=== PATIENT | male | born 1970 | race Caucasian/White ===

== ENCOUNTER 2025-03-14 09:24 | Outpatient (OUT) | payer BC, SELFPAY ==
--- OUTSIDE RECORDS SUMMARY | 2025-03-14 09:31 | XMS_ITS | Clinical Summary ---
Author Organization [facility] [employer] [facility] Address [address] [place] [address] [place] [address] Care Team Providers Care Scissors Sharpener Name Role Phone Laz Man MD Primary Care Provider [phone] Allergies Active Allergy Reactions Criticality Noted Date Comments *Seafood - Food Allergy 04/05/2018 Medications allopurinol 100 MG Tab tablet Take 5 tablets by mouth daily. Active aspirin 81 MG Tab Take 1 tablet by mouth daily. Active Levocetirizine Dihydrochloride 5 MG Tab tablet Take by mouth. Active Multiple Vitamin (MULTIVITAMIN) Cap Take 1 capsule by mouth daily. Active Loratadine-Pseudoep hedrine (CLARITIN-D 12 HOUR PO) Take by mouth. Active valsartan 160 MG tabletIndications:E ssential (primary) hypertension TAKE 1 TABLET BY MOUTH EVERY DAY 90 tablet 3 2 Active Naproxen Sodium 220 MG capsule Take 1 capsule by mouth as needed for Mild Pain. Active CUSTOM MEDICATION 1 tablet daily. Shilajt ashwagandhea , rhodiola rosea, panax ginseng Active Flecainide 100 MG tablet Take 1 tablet by mouth 2 times daily. 180 tablet 3 4 Active Icosapent Ethyl 1 g capsule TAKE 4 CAPSULES BY MOUTH EVERY DAY 360 capsule 3 4 Active Spironolactone 25 MG tablet TAKE 1/2 TABLET BY MOUTH DAILY 45 tablet 3 4 Active carveDILOL 25 MG tablet TAKE 1.5 TABLETS BY MOUTH EVERY DAY 135 tablet 3 5 Active atorvastatin 80 MG tablet TAKE 1 TABLET BY MOUTH EVERY DAY 90 tablet 3 5 Active Ezetimibe 10 MG tablet TAKE 1 TABLET BY MOUTH EVERY DAY 90 tablet 3 5 Active Vitamin D3 50 MCG (1999) capsule TAKE 1 CAPSULE BY MOUTH EVERY DAY 90 capsule 3 5 Active Active Problems Problem Noted Date Diagnosed Date PVC (premature ventricular contraction) 05/09/20 24 Mixed hyperlipidemia 05/03/2019 body mass index of 40.0-49.9 04/05/2018 Abnormal result of other cardiovascular function study 12/13/2017 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 12/13/2017 Essential (primary) hypertension 12/13/2017 shelter (current) use of aspirin 12/13/2017 Nicotine dependence, chewing tobacco, uncomplica nita 12/13/2017 Ventricular tachycardia 12/13/2017 Chest pain 07/21/2016 Resolved Problems Problem Noted Date Diagnosed Date Resolved Date Hypertensive disorder 07/21/20162021 Immunizations Immunization Administration Dates Next Due Tdap Vaccine 02/24/2018,01/11/2014 Family History Medical History Relation Name Comments Lipid Disorder Daughter 1 jason Diabetes Father Myocardial Infarction Father Heart Disease - Other Maternal Aunt Heart Disease - Other Maternal Grandmother Breast Cancer Mother Diabetes Mother Heart Disease - Other Mother Hypertension Mother Heart Disease - Other Paternal Uncle Diabetes Sister Other - Specify Sister blood clot t o heart and lungs Relation Name Status Comments Daughter 1 jason Alive Daughter 2 isabela Alive Father Maternal Aunt Maternal Grandmother Mother Paternal Uncle Sister Social History Tobacco Use Types Packs/Day Years Used Date Smoking Tobacco: Never Smokeless Tobacco: Current Chew Tobacco Cessation:Ready to Q uit: Not Asked; Counseling Given: Not Answered Alcohol Use Standard Drinks/Week Comments Yes 0 (1 standard drink = 0.6 oz pur e alcohol) occ AUDIT-C Answer Date Recorded Q1: How often do you have a drink containing alc ohol? 2-3 times a week 01/24/2020 Q2: How many drinks containi ng alcohol do you have on a typical day when you are drinking? 1 or 2 01/24/2020 Q3: How often do you have si x or more drinks on one occasion? Never 01/24/2020 Sex and Gender Information Value Date Recorded Sex Assigned at Not on file Legal Sex Male 8:31 AM EDT Gender Identity Male 03/29/2018 3:37 PM EDT Sexual Orientation Not on file Last Filed Vital Signs Vital Sign Reading Time Taken Comments Blood Pressure 130/84 05/09/2024 3:13 PM EST Pulse 59 05/09/2024 1:53 PM EST Temperature 36.2 C (97.1 F) 07/06/2022 10:08 AM EST Respiratory Rate 14 07/06/2022 10:08 AM EST Oxygen Saturation 98% 07/06/2022 10:08 AM EST Inhaled Oxygen Concentration - - Weight 142.6 kg (314 lb 6 oz) 05/09/2024 3:13 PM EST Height 177.8 cm (5' 10 ) 05/09/2024 3:13 PM EST Body Mass Index 45.11 05/09/2024 3:13 PM EST Plan of Treatment Upcoming Encounters Date Type Department Care Team (Late st Contact Info) Description 05/01/2025 1:00 PM EST Office Visit [facility] [address] [address] Hanh Peñaloza BUSINESS ADMINISTRATION TEACHER-SUPERVISOR FITTING [address] [facility] 2nd [place] [id number] 05/01/2025 2:30 PM EST Office Visit [facility] [address] [address] Heydi Laura BUSINESS ADMINISTRATION TEACHER-SUPERVISOR [employer]TING [address] [place] [phone] Health Maintenance Due Date Last Done Comments HEPATITIS C VIRUS SCREENING 1970 HIV SCREENING DISCUSSION 10/28/1983 HEP B VACCINE (1 of 3 - 19+ 3-dose series) 10/28/1987 COLORECTAL CANCER SCREENING DISCUSSION 2013 PNEUMOCOCCAL VACCINE SERIES (1 of 1 - PCV) 2018 ZOSTER (SHINGLES) VACCINE (1 of 2) 2018 POTASSIUM 07/06/2023 07/06/2022, 04/0 02/2021, 01/24/2020, Additional history exists PROSTATE CANCER SCREENING DISCUSSION 10/28/2023 COVID-19 VACCINE (1 - 2023-2 5 season) 2025 INFLUENZA VACCINE (#1) 2025 LIPID SCREENING 08/17/2027 08/17/2022, 06/26, 01/24/2020 TETANUS 02/25/2028 02/24/2018, 01/11/2014 TDAP (ADULT) Completed 02/24/2018, 01/11/2014 Procedures Procedure Name Priority Date/Time Associated Diagnosis Comments TOTAL CHOLESTEROL, MANUAL ENTER Routine 08/17/2022 CHEM 6 (LYTES, BUN CREA) Routine 07/06/2022 1:46 PM EST Encounter for monitoring flecainide therapy from Last 3 Months or Most Recently Relevant to Health Maintenance Results * TOTAL CHOLESTEROL, MANUAL ENTER (08/17/2022) TOTAL CHOLESTERL, MANUAL ENTER 149 Historical Provider LAB SEND OUTS Final Result * CHEM 6 (LYTES, BUN CREA) (07/06/2022 1:46 PM EST) BUN 24 7 - 25 mg/dL 07/06/2022 3:57 PM EST [facility] Sodium 135 135 - 145 mmol/L 07/06/2022 3:57 PM EST [facility] Potassium 4.4 3.5 - 5.0 mmol/L 07/06/2022 3:57 PM EST [facility] Chloride 99 98 - 108 mmol/L 07/06/2022 3:57 PM EST [facility] CO2 28 21 - 31 mmol/L 07/06/2022 3:57 PM EST [facility] Creatinine 0.97 0.70 - 1.30 mg/dL 07/06/2022 3:57 PM EST [facility] Bun/Crea Ratio 25 07/06/2022 3:57 PM EST [facility] Anion Gap 12 7 - 17 mmol/L 07/06/2022 3:57 PM EST [facility] eGFR, CKD-EPI, Male >90 >=60 mL/min/1.7 3m2 07/06/2022 3:57 PM EST [facility] Comment:Reported eGFR is bas ed on the CKD-EPI 2020 equation using creatinine, age, and sex. Blood Venipuncture / Unknown 07/06/2022 1:46 PM EST 07/06/2022 1:47 PM EST us Daquan Limon MD CHEMISTRY ORDERABLES Final Re sult [facility] [address] [address] from Last 3 Months or Most Recently Relevant to Health Maintenance Insurance O PPO POS Care Teams Scissors Sharpener Relationship Specialty Start Date End Date Laz aMn MD PCP - General Family Medicine 04/03/18
--- OUTSIDE RECORDS SUMMARY | 2025-03-14 09:31 | XMS_ITS | Clinical Summary ---
Author Organization [facility] Address [address], [address] [place] [address] Care Team Providers Care Nuclear Process Engineer Name Role Phone Laz Man MD Primary Care Provider [phone] Allergies No known active allergies Medications Olmesartan Medoxomil (BENICAR PO) Take 40 mg by mouth Active allopurinol (ZYLOPRIM) 100 MG tablet Take 100 mg by mouth 5 times daily Active colchicine (COLCRYS) 0.6 MG tablet Take 0.6 mg by mouth daily Active simvastatin (ZOCOR) 40 MG tablet Take 40 mg by mouth nightly Active levocetirizine (XYZAL) 5 MG tablet Take 5 mg by mouth daily Active amLODIPine (NORVASC) 10 MG tablet Take 10 mg by mouth daily Active Diclofenac-Miso prostol (ARTHROTEC PO) Take 75 mg by mouth Active Social History Tobacco Use Types Packs/Day Years Used Date Smoking Tobacco: Every Day Alcohol Use Standard Drinks/Week Comments Yes 0 (1 standard drink = 0.6 oz pur e alcohol) Sex and Gender Information Value Date Recorded Sex Assigned at Not on file Legal Sex Male 11:37 PM EST Gender Identity Not on file Sexual Orientation Not on file Last Filed Vital Signs Vital Sign Reading Time Taken Comments Blood Pressure 133/68 07/16/2016 2:50 AM EST Pulse 84 07/16/2016 2:50 AM EST Temperature 36.6 C (97.8 F) 07/16/2016 2:50 AM EST Respiratory Rate 18 07/16/2016 2:50 AM EST Oxygen Saturation 99% 07/16/2016 2:50 AM EST Inhaled Oxygen Concentration - - Weight - - Height - - Body Mass Index - - Plan of Treatment Not on file Insurance [employer] Care Teams Nuclear Process Engineer Relationship Specialty Start Date End Date Laz Man MD [address] [phone] PCP - General 07/15/16
--- NOTE | 2025-03-14 09:40 | XR_ITS ---
The [address] [address] Patient Name: MIKE MCRAE MRN: [id number] date: 1970 Sex: M Assigned Patient Location: [facility] Current Patient Location: [facility] Accession/Order Number: [id number] Exam Date: 03/14/2025 10:05 Report Date: 03/14/2025 11:35 At the request of: HATTIE WYATT MD Procedure: XR knee RT 3V RIGHT KNEE - 3 views COMPARISON: None CLINICAL DATA: Intermittent knee instability over the past 2 months. Pain radiating to the ankle. AP, lateral and internal oblique views were obtained. No acute fracture or dislocation is noted. There may be some narrowing at the patellofemoral joint. There is tricompartment marginal spurring. There is mild chondrocalcinosis of the menisci. There are also several osteochondral loose bodies around the knee though greatest at the popliteal fossa. There is no significant knee effusion. XR/XR knee RT 3V IMPRESSION: DEGENERATIVE CHANGES, DESCRIBED. NO ACUTE BONY FINDINGS. Impression dictated by: Jing Cesar M.D. 03/14/2025 11:35 AM Dictation Location: [facility] Electronically authenticated by: [id number] Y Date: 03/14/2025 11:35
== END 2025-03-14 09:25 | disposition home or self-care (01) ==
LOC: RAD 09:30
PROVIDERS: PCP Family Medicine; Visit Provider Family Medicine
DX: M23.91 Unspecified internal derangement of right knee (principal)
CPT/HCPCS: 73562

== ENCOUNTER 2025-03-28 06:38 | Outpatient (OUT) | payer BC, SELFPAY ==
--- NOTE | 2025-03-28 06:42 | MR_ITS ---
[address] [address] Patient Name: MIKE MCRAE MRN: [id number] date: 1970 Sex: M Assigned Patient Location: MRI Current Patient Location: MRI Accession/Order Number: [id number] Exam Date: 03/28/2025 06:55 Report Date: 03/28/2025 11:03 At the request of: HATTIE WYATT MD Procedure: MR knee RT wo con MR knee RT wo con 03/28/2025 7:42 AM SIGNS AND SYMPTOMS: Internal Derangement Of Knee PROTOCOL: Right knee pain and weakness COMPARISON: 03/14/2025 FINDINGS: Fluid: There is a moderate joint effusion. There are T2 hypointense loose bodies in the joint spaces both anteriorly and posteriorly measuring up to 1 cm posteriorly and 1.2 cm anteriorly. 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 There is an accompanying Diego cyst containing loose bodies measuring 3.3 x 1.7 x 6.2 cm in greatest dimension. Medial compartment: Medial meniscus: There is a complex and presumably remote tear of the body and posterior horn of the medial meniscus. The body of the medial meniscus is extruded from the joint space. Medial collateral ligament: Intact. Medial femoral condyle cartilage: Full-thickness chondromalacia. Osteophytosis. Medial tibial plateau cartilage: There is full thickness chondromalacia.. Osteophytosis. Lateral compartment: Lateral meniscus: . The body and anterior horn of the lateral meniscus are truncated suggesting previous displaced tears.. There is a horizontally oriented tear through the remnants of the body of the lateral meniscus. The body of the lateral meniscus is extruded from the joint space. Lateral collateral ligament: Intact. Lateral femoral condyle cartilage: There is partial thickness chondromalacia. Osteophytosis. Lateral tibial plateau cartilage: There is partial thickness chondromalacia with subchondral cystic change along the central aspect of the medial tibial plateau beneath the tibial spines.. Osteophytosis. Posterolateral corner: Popliteus tendon: Intact. Popliteofibular ligament: Intact. Proximal tibiofibular joint: Preserved. Anterior compartment: Alignment: Preserved. Quadriceps tendon: Intact. Patellar tendon: Intact. Retinaculum: Medial intact. Lateral intact. Patellar cartilage: There is full thickness chondromalacia of the apex and lateral articular facet with mild subchondral edema. Trochlea: There is partial thickness chondromalacia with subcortical cystic change. . Plica: None. Hoffa fat pad: Ossific loose body projects into the Hoffa's fat pad. There is edema within Hoffa's fat pad. Intercondylar compartment: Anterior cruciate ligament: Intact. Posterior cruciate ligament: Intact. Bones (other than subarticular marrow): Normal. Muscles: Normal. Vessels: Normal. Nerves: Normal. Soft tissues: There is prepatellar soft tissue swelling. MR/MR knee RT wo con IMPRESSION: There is a moderate joint effusion. There are T2 hypointense loose bodies in the joint spaces both anteriorly and posteriorly measuring up to 1 cm posteriorly and 1.2 cm anteriorly. 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 There is an accompanying Diego cyst containing loose bodies measuring 3.3 x 1.7 x 6.2 cm in greatest dimension. Chronic/remote appearing tears of the medial and lateral meniscus which appears truncated as above. The body of the medial and lateral menisci are extruded from the joint space. There is full thickness chondromalacia along the medial weightbearing articular surfaces with partial thickness chondromalacia laterally. There is full thickness chondromalacia along the patellar apex and medial articular facet. Impression dictated by: Phil Ley M.D. 03/28/2025 11:03 AM Dictation Location: [place] [address] Electronically authenticated by: [id number] Y Date: 03/28/2025 11:03
== END 2025-03-28 06:39 | disposition home or self-care (01) ==
LOC: MRI 06:38
PROVIDERS: PCP Family Medicine; Visit Provider Family Medicine
DX: M23.91 Unspecified internal derangement of right knee (principal); M25.461 Effusion, right knee; M71.21 Synovial cyst of popliteal space [Baker], right knee; S83.281A Other tear of lateral meniscus, current injury, right knee, initial encounter; S83.241A Other tear of medial meniscus, current injury, right knee, initial encounter; M22.41 Chondromalacia patellae, right knee
CPT/HCPCS: 73721